=== PATIENT | male | born 1965 | race Two or more races ===

== ENCOUNTER 2016-11-20 08:06 | Day surgery (SDC) | payer BC ==
[~2016-11-20 08:06] MED LIST: LACTATED RINGERS 1,000 ML IV SCH
[2016-11-20] MEDS ORDERED: LIDOCAINE 1% 20 ML VIAL (10MG/ML) FOR IV START INTRADERMA ONE (08:49)
[2016-11-20 08:52] VITALS: RESP 16; TEMP 97.1
[2016-11-20] MEDS ORDERED: LIDOCAINE 1% INJ 10MG/ML (20 ML MDV) ONE (09:24)
[2016-11-20] MEDS ORDERED: PROPOFOL 10 MG/ML 20 ML VIAL IV ONE (09:24)
--- NOTE | 2016-11-20 09:57 | P.PCN ---
Date of Procedure: 11/20/16 Procedure(s) Performed: BRIEF HISTORY: Patient is a 51-year-old pleasant white male, scheduled for an elective colonoscopy as a part of screening for colorectal neoplasia. PROCEDURE PERFORMED: Colonoscopy. PREOPERATIVE DIAGNOSIS: Screening for colon cancer. IV sedation per Anesthesia. PROCEDURE: After informed consent was obtained, the patient, was brought into the endoscopy unit. IV conscious sedation was administered by Anesthesia under continuous monitoring. Digital rectal examination was normal. Initially the Olympus CF-160 flexible video colonoscope was then inserted in the rectum, gradually advanced into the cecum without any difficulty. Careful examination was performed as the scope was gradually being withdrawn. Ileocecal valve and the appendiceal orifice were visualized and appeared normal. Prep was excellent. Mucosa of the cecum, ascending colon, transverse colon, descending colon, sigmoid colon, and rectum appeared normal. Retroflexion was performed in the rectum and no lesions were seen. Scattered sigmoid diverticulosis seen. The patient tolerated the procedure well. IMPRESSION: Normal-appearing colon from rectum to cecum with no evidence of colorectal neoplasia. Scattered sigmoid diverticulosis. RECOMMENDATIONS: Findings of this examination were discussed with the patient as well as his family. He was advised to have a repeat screening colonoscopy in 10 years.
[2016-11-20 10:23] VITALS: BP 121/81; PULSE 58
== END 2016-11-20 10:33 | disposition home or self-care (01) ==
LOC: ORWHC2ENDO 08:06
PROVIDERS: ATTEND Internal Medicine Gastroenterology
DX: Z12.11 Encounter for screening for malignant neoplasm of colon (principal); K57.30 Diverticulosis of large intestine without perforation or abscess without bleeding; Z72.0 Tobacco use
CPT/HCPCS: J2001; J2704; G0121; 99153

== ENCOUNTER → 2022-04-30 | Outpatient (CLI) | payer BC ==
--- NOTE | 2022-04-30 12:31 | MR ---
EXAMINATION TYPE: MR Prostate wo/w con DATE OF EXAM: 04/30/2022 COMPARISON: None. INDICATION: prostate nodule PSA: 0.58 ng/ml on October 03, 2020 Recent Biopsy and Date: n/a Pathology Report (If Applicable): TECHNIQUE: Examination was performed using a 3T MRI without an endorectal coil. Multiparametric imaging was perf ormed with T2 mutliplanar sequences, axial diffusion weighted imaging and dynamic contrast enhanced i maging, utilizing 7 mL intravenous Gadavist gadolinium contrast. FINDINGS: There is no clinically significant cancer identified. PROSTATE VOLUME: 4.7 cm SI x 3.5 cm AP x 5.5 cm LR Vol= 47.37 cc Predicted PSA equals 5.68 PSA DENSITY: 0.01 ng/ml/cc Prostate gland is enlarged in size with a thin walled cyst or cystic lesion being slightly lower dens ity and T2 weighted images versus the bladder along the left aspect measuring 3.2 x 2.3 cm axial imag e 19 x 2.9 cm craniocaudal dimension coronal image 17. This has internal smaller rounded and oval are as of thin-walled cystic change of varying intensity without internal enhancement favoring a nonsimpl e cyst. Some areas of indistinct hyperintensity in the transitional zone on ADC mapping are present f or reference right lateral aspect mid level anteriorly on axial image 20. Posterior central involveme nt towards the base noted axial image 22. There is thinning of the transitional zone identified witho ut definitive suspicious lesion of diminished T1 hypointensity. Seminal vesicles appear within normal limits. Fairly moderate wall thickening of the visualized sigmo id rectal colon should be correlated clinically. No adjacent pelvic adenopathy or free fluid. Visuali zed osseous structures are intact. IMPRESSION: There is 3.2 cm thin-walled cystic lesion left aspect of prostate gland of uncertain etio logy but not suspicious on MRI from neoplasm. Enlarged prostate gland is present. A focus of clinically significant cancer is not identified. Highest Assessment Category: 2 MRI Stage: T0 N0 M0 based on review of pelvic images. False negative rates for MRI range from 5-20% depending on risk profile. Assessment Categories: 1 ? Very low (clinically significant cancer is highly unlikely to be present) 2 ? Low (clinically significant cancer is unlikely to be present) 3 ? Intermediate (the presence of clinically significant cancer is equivocal) 4 ? High (clinically significant cancer is likely to be present) 5 ? Very high (clinically significant cancer is highly likely to be present)
== END | disposition home or self-care (01) ==
LOC: RADMRIMAIN 07:29
PROVIDERS: ATTEND Urology
DX: N40.2 Nodular prostate without lower urinary tract symptoms (principal)
CPT/HCPCS: 72197; A9585